=== PATIENT | male | born 1960 | race Caucasian/White ===

== ENCOUNTER 2018-10-16 13:36 | Emergency (ER) | payer OTHER ==
[~2018-10-16] VITALS: Ht 180.3 cm; Wt 90.9 kg
[2018-10-16 14:02] VITALS: Ht 180.3 cm; Wt 90.9 kg
[2018-10-16] MEDS ORDERED: MOBIC7.5 MG PO (14:04)
[2018-10-16] MEDS ORDERED: OMEPRAZOLE20 M1 PO (14:04)
[2018-10-16] MEDS ORDERED: AUGMENTIN 875-11 TAB PO (15:12)
[2018-10-16] MEDS ORDERED: IBUPROFEN800 MG PO (15:12)
[2018-10-16 17:40] VITALS: BP 129/92
== END 2018-10-16 17:27 | disposition home or self-care (01) ==
LOC: EDBD 13:36 → D.ER 13:36
DX: S61.212A Laceration without foreign body of right middle finger without damage to nail, initial encounter (principal); W26.9XXA Contact with unspecified sharp object(s), initial encounter; Y93.89 Activity, other specified; Y92.89 Other specified places as the place of occurrence of the external cause